=== PATIENT | male | born 1965 | race Caucasian/White ===

== ENCOUNTER 2022-04-25 15:37 | Emergency (ER) | payer OTHER ==
[2022-04-25 16:00] VITALS: TEMP 98.5
[2022-04-25 16:38] LABS: Basophils # (A) 0.1 k/uL (0-0.2); Basophils % (A) 1 %; Eosinophils % (A) 0 %; HCT 46.5 % (39.0-53.0); HGB 16.1 gm/dL (13.0-17.5); Lymphocytes # (A) 1.2 k/uL (1.0-4.8); Lymphocytes % (A) 15 %; MCH 31.4 pg (25.0-35.0); MCHC 34.6 g/dL (31.0-37.0); MCV 90.9 fL (80.0-100.0); Mean Platelet Volume 7.5; Monocytes # (A) 0.7 k/uL (0-1.0); Monocytes % (A) 8 %; Neutrophils # (A) 5.9 k/uL (1.3-7.7); Neutrophils % (A) 73 %; Platelet Count 301 k/uL (150-450); RBC 5.11 m/uL (4.30-5.90); RDW 12.4 % (11.5-15.5)
--- NOTE | 2022-04-25 16:41 | ED ---
General Adult HPI - General Source: patient, RN notes reviewed Mode of arrival: ambulatory <Brooklyn Lobo - Last Filed: 04/25/22 16:47> <Shivani Higuera - Last Filed: 04/25/22 23:35> - General Chief complaint: Headache Stated complaint: hypertension Time Seen by Provider: 04/25/22 16:39 - History of Present Illness Initial comments: Patient a 56-year-old male who presents to the emergency department for evaluation of high blood pressure. Patient has history of hypertension, currently on metoprolol 25 mg and lisinopril 25 mg once daily. He noticed an increase in blood pressure on Sunday. His primary care told him to take a se cond metoprolol which patient has been doing each day for the past few days. This morning his blood pressure was 168/99. He felt flushed in the face around lunch time and checked his blood pressure again and it was 176/104. He took second dose of metoprolol. Patient states is usually in the 130s/80s. He currently reports fatigue, increased thirst, and headache. He denies history of diabetes. No chest pain or shortness of breath. Patient does report getting a steroid shot and his knee on . Also finished a 3 day prescription of oral prednisone on Sunday. Denies fever, chills, URI symptoms. (Brooklyn Lobo) Triage note reviewed: I agree with the above note. Patient reports taking 25 mg of Metropolol once a day. He is unsure of whether it is extended release or not. (Shivani Higuera) - Related Data Home Medications Medication Instructions Recorded Confirmed Metoprolol Succinate (ER) [Toprol 50 mg PO DAILY 04/25/22 04/25/22 Xl] Multivitamins, Thera [Multivitamin 1 tab PO DAILY 04/25/22 04/25/22 (formulary)] Rosuvastatin [Crestor] 10 mg PO DAILY 04/25/22 04/25/22 Ubidecarenone [Coenzyme Q10] 200 mg PO DAILY 04/25/22 04/25/22 lisinopriL [Prinivil] 20 mg PO DAILY 04/25/22 04/25/22 Previous Rx's Medication Instructions Recorded amLODIPine [Norvasc] 2.5 mg PO DAILY 10 Days #10 tablet 04/25/22 Allergies Allergy/AdvReac Type Severity Reaction Status Date / Time No Known Allergies Allergy Verified 04/25/22 19:26 Review of Systems ROS Other: All systems not noted in ROS Statement are negative. <Brooklyn Lobo - Last Filed: 04/25/22 16:47> ROS Other: All systems not noted in ROS Statement are negative. <Shivani Higuera - Last Filed: 04/25/22 23:35> ROS Statement: Those systems with pertinent positive or pertinent negative responses have been documented in the HPI. Past Medical History Past Medical History: Hypertension History of Any Multi-Drug Resistant Organisms: None Reported Past Surgical History: No Surgical Hx Reported, Orthopedic Surgery Past Psychological History: No Psychological Hx Reported Smoking Status: Former smoker Past Alcohol Use History: Rare Past Drug Use History: None Reported <Brooklyn Lobo - Last Filed: 04/25/22 16:47> General Exam General appearance: alert, in no apparent distress Head exam: Present: atraumatic, normocephalic, normal inspection Eye exam: Present: normal appearance, PERRL, EOMI. Absent: scleral icterus, conjunctival injection, periorbital swelling ENT exam: Present: normal exam, mucous membranes moist Neck exam: Present: normal inspection. Absent: tenderness, meningismus, lymphadenopathy Respiratory exam: Present: normal lung sounds bilaterally. Absent: respiratory distress, wheezes, rales, rhonchi, stridor Cardiovascular Exam: Present: regular rate, normal rhythm, normal heart sounds. Absent: systolic murmur, diastolic murmur, rubs, gallop, clicks GI/Abdominal exam: Present: soft, normal bowel sounds. Absent: distended, tenderness, guarding, rebound, rigid Extremities exam: Present: normal inspection, full ROM, normal capillary refill. Absent: tenderness, pedal edema, joint swelling, calf tenderness Back exam: Present: normal inspection Neurological exam: Present: alert, oriented X3, CN II-XII intact Psychiatric exam: Present: normal affect, normal mood Skin exam: Present: warm, dry, intact, normal color. Absent: rash <Shivani Higuera - Last Filed: 04/25/22 23:35> Course Vital Signs 04/25/22 04/25/22 04/25/22 15:57 18:07 18:27 Temperature 98.5 F Pulse Rate 90 81 Pulse Rate [ 87 Pulse Oximetery ] Respiratory 16 18 Rate Blood Pressure 179/109 141/102 O2 Sat by Pulse 96 97 Oximetry EKG Findings - EKG Comments: EKG Findings:: I interpreted the following: EKG performed 16:21. rate 82bpm, DC 166, QRS 103 qt/qTC 349/387 <Shivani Higuera - Last Filed: 04/25/22 23:35> Medical Decision Making - Lab Data Result diagrams: 04/25/22 16:20 <Brooklyn Lobo - Last Filed: 04/25/22 16:47> - Lab Data Result diagrams: 04/25/22 16:20 04/25/22 16:20 <Shivani Higuera - Last Filed: 04/25/22 23:35> - Medical Decision Making Was pt. sent in by a medical professional or institution (Dr. PA, [employer], urgent care, hospital, or senior living...) When possible be specific @ -[No] Did you speak to anyone other than the patient for history (EMS, parent, family, police, friend...)? What history was obtained from this source @ -[No] Did you review nursing and triage notes (agree or disagree)? Why? @ -[I reviewed and agree with nursing and triage notes] Were old charts reviewed (outside hosp., previous admission, EMS record, old EKG, old radiological studies, urgent care reports/EKG's, senior living records)? Report findings @ -[No old charts were reviewed] Differential Diagnosis (chest pain, altered mental status, abdominal pain women, abdominal pain men, vaginal bleeding, weakness, fever, dyspnea, syncope, headache, dizziness, GI bleed, back pain, seizure, CVA, palpatations, mental health)? @ -[not applicable] EKG interpreted by me (3pts min.). @ -[As above] X-rays interpreted by me (1pt min.). @ -Negative for any acute process. CT interpreted by me (1pt min.). @ -[None done] U/S interpreted by me (1pt. min.). @ -[None done] What testing was considered but not performed or refused? (CT, X-rays, U/S, labs)? Why? @ -[None] What meds were considered but not given or refused? Why? @ -[None] Did you discuss the management of the patient with other professionals (professionals i.e. , PA, [employer], lab, RT, psych nurse, director social service, market stall vendor, teacher, radiological defense officer, showcase trimmer)? Give summary @ -[No] Was smoking cessation discussed for >3mins.? @ -[No] Was critical care preformed (if so, how long)? @ -[No] Were there social determinants of health that impacted care today? How? (Homelessness, low income, unemployed, alcoholism, drug addiction, transportation, low edu. Level, literacy, decrease access to med. care, snf, rehab)? @ -[No] Was there de-escalation of care discussed even if they declined (Discuss DNR or withdrawal of care, Hospice)? DNR status @ -[No] What co-morbidities impacted this encounter? (DM, HTN, Smoking, COPD, CAD, Cancer, CVA, ARF, Chemo, Hep., AIDS, mental health diagnosis, sleep apnea, morbid obesity)? @ -[None] Was patient admitted / discharged? Hospital course, mention meds given and route, prescriptions, significant lab abnormalities, going to OR and other pertinent info. @ -56 year old male presents the emergency department for headache/HTN. Patient had a physical history and physical performed, physical exam essentially unremarkable. Patient had an extensive cardiac workup performed while in the emergency department which was essentially unremarkable. Despite being given 2.5 of Norvasc the patient blood pressure remains to be around 140/100. Patient was given norvasc with symptomatic relief on the emergency department. He was given a prescription for norvasc for 10 days to ta ke in combination with metoprolol. I discussed the results in detail with the patient. Return precautions were discussed. The patient was discharged in stable condition with recommended close follow-up with PCP in 1-2 days. I discussed the case with GENARO Her who agrees with the current plan. Undiagnosed new problem with uncertain prognosis? @ -[No] Drug Therapy requiring intensive monitoring for toxicity (Heparin, Nitro, Insulin, Cardizem)? @ -[No] Were any procedures done? @ -[No] Diagnosis/symptom? @ -HTN - Headache Acute, or Chronic, or Acute on Chronic? @ -acute Uncomplicated (without systemic symptoms) or Complicated (systemic symptoms)? @ -uncomplicated Side effects of treatment? @ -[No] Exacerbation, Progression, or Severe Exacerbation? @ -[No] Poses a threat to life or bodily function? How? (Chest pain, USA, IA, pneumonia, PE, COPD, DKA, ARF, appy, cholecystitis, CVA, Diverticulitis, Homicidal, Suicidal, threat to staff... and all critical care pts) @ -[No] (Shivani Higuera) - Lab Data Lab Results 04/25/22 04/25/22 04/25/22 Range/Units 16:20 16:20 16:20 WBC 8.0 (3.8-10.6) k/uL RBC 5.11 (4.30-5.90) m/uL Hgb 16.1 (13.0-17.5) gm/dL Hct 46.5 (39.0-53.0) % MCV 90.9 (80.0-100.0) fL MCH 31.4 (25.0-35.0) pg MCHC 34.6 (31.0-37.0) g/dL RDW 12.4 (11.5-15.5) % Plt Count 301 (150-450) k/uL MPV 7.5 Neutrophils % 73 % Lymphocytes % 15 % Monocytes % 8 % Eosinophils % 0 % Basophils % 1 % Neutrophils # 5.9 (1.3-7.7) k/uL Lymphocytes # 1.2 (1.0-4.8) k/uL Monocytes # 0.7 (0-1.0) k/uL Eosinophils # 0.0 (0-0.7) k/uL Basophils # 0.1 (0-0.2) k/uL PT 10.0 (9.0-12.0) sec INR 0.9 (<1.2) APTT 23.5 (22.0-30.0) sec Sodium 143 (137-145) mmol/L Potassium 4.2 (3.5-5.1) mmol/L Chloride 105 (98-107) mmol/L Carbon Dioxide 27 (22-30) mmol/L Anion Gap 11 mmol/L BUN 21 H (9-20) mg/dL Creatinine 1.20 (0.66-1.25) mg/dL Est GFR (CKD-EPI)AfAm 78 (>60 ml/min/1.73 sqM) Est GFR (CKD-EPI)NonAf 68 (>60 ml/min/1.73 sqM) Glucose 104 H (74-99) mg/dL Calcium 9.7 (8.4-10.2) mg/dL Total Bilirubin 0.6 (0.2-1.3) mg/dL AST 34 (17-59) U/L ALT 60 H (4-49) U/L Alkaline Phosphatase 78 (38-126) U/L Troponin I (0.000-0.034) ng/mL Total Protein 7.9 (6.3-8.2) g/dL Albumin 4.9 (3.5-5.0) g/dL 04/25/22 Range/Units 16:20 WBC (3.8-10.6) k/uL RBC (4.30-5.90) m/uL Hgb (13.0-17.5) gm/dL Hct (39.0-53.0) % MCV (80.0-100.0) fL MCH (25.0-35.0) pg MCHC (31.0-37.0) g/dL RDW (11.5-15.5) % Plt Count (150-450) k/uL MPV Neutrophils % % Lymphocytes % % Monocytes % % Eosinophils % % Basophils % % Neutrophils # (1.3-7.7) k/uL Lymphocytes # (1.0-4.8) k/uL Monocytes # (0-1.0) k/uL Eosinophils # (0-0.7) k/uL Basophils # (0-0.2) k/uL PT (9.0-12.0) sec INR (<1.2) APTT (22.0-30.0) sec Sodium (137-145) mmol/L Potassium (3.5-5.1) mmol/L Chloride (98-107) mmol/L Carbon Dioxide (22-30) mmol/L Anion Gap mmol/L BUN (9-20) mg/dL Creatinine (0.66-1.25) mg/dL Est GFR (CKD-EPI)AfAm (>60 ml/min/1.73 sqM) Est GFR (CKD-EPI)NonAf (>60 ml/min/1.73 sqM) Glucose (74-99) mg/dL Calcium (8.4-10.2) mg/dL Total Bilirubin (0.2-1.3) mg/dL AST (17-59) U/L ALT (4-49) U/L Alkaline Phosphatase (38-126) U/L Troponin I <0.012 (0.000-0.034) ng/mL Total Protein (6.3-8.2) g/dL Albumin (3.5-5.0) g/dL Disposition <Brooklyn Lobo - Last Filed: 04/25/22 16:47> Is patient prescribed a controlled substance at d/c from ED?: No Time of Disposition: 19:56 <Shivani Higuera - Last Filed: 04/25/22 23:35> Clinical Impression: Hypertension, Headache Disposition: HOME SELF-CARE Condition: Stable Instructions (If sedation given, give patient instructions): Acute Headache (ED), Hypertension (ED) Additional Instructions: Please return to the nearest emergency department if worsening headache, vision changes, dizziness, chest pain developed Prescriptions: amLODIPine [Norvasc] 2.5 mg PO DAILY 10 Days #10 tablet Referrals: Nonstaff,Physician [REFERRING] - 1-2 days
[2022-04-25 16:49] LABS: INR 0.9 (<1.2); Partial Thromboplastin Time 23.5 sec (22.0-30.0)
[2022-04-25 16:54] LABS: Albumin 4.9 g/dL (3.5-5.0); Calcium 9.7 mg/dL (8.4-10.2); Potassium 4.2 mmol/L (3.5-5.1); Total Bilirubin 0.6 mg/dL (0.2-1.3); Total Protein 7.9 g/dL (6.3-8.2)
--- NOTE | 2022-04-25 17:15 | XR ---
EXAMINATION TYPE: XR chest 2V DATE OF EXAM: 04/25/2022 COMPARISON: NONE HISTORY: Hypertension TECHNIQUE: 2 views FINDINGS: Heart and mediastinum are normal. Lungs are clear. Diaphragm is normal. Bony thorax appears normal. IMPRESSION: Normal chest.
[2022-04-25 18:28] VITALS: BP 141/102; PULSE 81; RESP 18
[2022-04-25] MEDS ORDERED: amLODIPine 5 MG TAB PO STA (18:29)
== END 2022-04-25 20:36 | disposition home or self-care (01) ==
LOC: EC 15:37
DX: R51.9 Headache, unspecified (principal); I10 Essential (primary) hypertension; Z79.899 Other long term (current) drug therapy; Z87.891 Personal history of nicotine dependence
CPT/HCPCS: 36415; 71046; 80053; 84484; 85025; 85610; 85730; 93005; 99284